=== PATIENT | male | born 1990 | race African-American/Black ===

== ENCOUNTER 2021-06-15 21:08 | Emergency (ER) | payer OTHER ==
[~2021-06-15] VITALS: Ht 180.3 cm; Wt 110.2 kg
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
[~2021-06-15 21:08] MED LIST: NAPROXEN DELAY500 M1 PO; NO HOME MEDS
[2021-06-15 21:30] LABS: BASOPHILS 0.7 % (0.0-2.0); EOSINOPHILS 1.9 % (0.0-3.0); HEMATOCRIT 43.9 % (42.0-52.0); HEMOGLOBIN 14.5 gm/dL (14.0-18.0); LYMPHOCYTES 44.2 % (24.0-44.0); MCV 93.7 fL (80.0-100.0); MONOCYTES 10.2 % (1.0-8.0); PLATELET COUNT 232 thou/uL (150-400); RBC 4.69 mil/uL (4.50-6.00); RDW 13.3 % (10.5-14.5)
[2021-06-15 21:48] LABS: CALCIUM 8.9 mg/dL (8.5-10.1); CREATININE 1.4 mg/dL (0.7-1.3); POTASSIUM 3.5 mmol/L (3.5-5.1)
[2021-06-15 21:53] LABS: ALBUMIN 4.1 g/dL (3.4-5.0); TOTAL BILIRUBIN 0.3 mg/dL (0.2-1.0)
[2021-06-15 22:10] VITALS: BP 137/81
== END 2021-06-15 22:20 | disposition home or self-care (01) ==
LOC: ER 21:08
PROVIDERS: Nurse Practitioner
DX: S70.01XA Contusion of right hip, initial encounter (principal); S40.022A Contusion of left upper arm, initial encounter; I10 Essential (primary) hypertension; F17.210 Nicotine dependence, cigarettes, uncomplicated; V43.52XA Car driver injured in collision with other type car in traffic accident, initial encounter; Y93.19 Activity, other involving water and watercraft; Y92.415 Exit ramp or entrance ramp of street or highway as the place of occurrence of the external cause; Y99.8 Other external cause status

== ENCOUNTER 2021-06-18 12:08 | Emergency (ER) | payer OTHER ==
[~2021-06-18] VITALS: Ht 180.3 cm; Wt 96.6 kg
== END 2021-06-18 13:11 | disposition home or self-care (01) ==
LOC: ER 12:08
DX: M25.572 Pain in left ankle and joints of left foot (principal); I10 Essential (primary) hypertension; F17.210 Nicotine dependence, cigarettes, uncomplicated; V87.7XXD Person injured in collision between other specified motor vehicles (traffic), subsequent encounter